=== PATIENT | female | born 1980 | race Two or more races ===

== ENCOUNTER 2024-08-25 20:24 | Emergency (ER) | payer BC, SELFPAY ==
[2024-08-25 20:25] VITALS: BMI 31.8
[2024-08-25 21:00] VITALS: BP 138/90; PULSE 103; RESP 18; TEMP 37.1; O2SAT 96
--- NOTE | 2024-08-25 22:19 | EDNOTE_ITS ---
ED Ear RME/HPI General Chief complaint: Dental/Oral/Throat Stated complaint: THROAT PAIN, EAR PAIN Arrival date/time: 08/25/24 20:24 RME / HPI RME / HPI Narrative: Dr. Welsh's Main ED Evaluation: 43yo female with no significant past medical history presents to the ED for complaints of bilateral ear pain and sore throat. Patient states she started having a sore throat yesterday. She states she had a telehealth appointment with her PCP today and was told she had sinusitis, but was not prescribed antibiotics. Patient reports associated congestion and fever. She has been taking ibuprofen at home without any alleviation of symptoms. Patient denies any N/V or any other associated symptoms. No known allergies. Related Data Allergies Allergy/AdvReac Type Severity Reaction Status Date / Time No Known Allergies Allergy Unknown Uncoded 08/25/24 20:25 Review of Systems Review of Systems Systems Reviewed: All systems reviewed, normal except as documented Past Medical History Social History SMOKING STATUS: Never smoker ED Exam Narrative Physical exam: GENERAL APPEARANCE: alert and oriented x 4, well-developed, well-nourished, no acute distress VITALS: All vitals were reviewed and the pulse ox is 96% on room air, which is normal according to my interpretation. HEENT: Normocephalic, atraumatic; pupils equal, round, reactive to light; EOMI; mucous membranes pink, moist; posterior oropharyngeal injection; right serous otitis media NECK: Supple LUNGS: CTABL; no wheezes, no rales, no rhonchi HEART: Regular rate, regular rhythm; normal S1, S2; no murmurs ABDOMEN: non distended; normal BS; soft, no tenderness, no guarding, no rebound; no masses, no organomegaly, no hernia BACK: no CVA tenderness EXTREMITIES: atraumatic; no edema NEUROLOGIC: awake; alert and oriented x4; cranial nerves II-XII grossly intact; no focal sensory or motor deficits PSYCHIATRIC: appropriate mood and affect SKIN: warm, dry, normal color; no rashes Course Quality Measures none Orders Category Date Time Status Dexamethasone Inj [Decadron Inj] Med 08/25/24 22:25 Once 10 mg PO X1 ONE Oxymetazoline Yogesh Gillespie 0.05% [Afrin Nasal [place]] Med 08/25/24 22:24 Once See Dose Instructions NASAL X1 ONE Vital Signs Vital signs: Vital Signs Temperature 98.8 F 08/25/24 21:00 Pulse Rate 103 H 08/25/24 21:00 Respiratory Rate 18 08/25/24 21:00 Blood Pressure 138/90 H 08/25/24 21:00 Pulse Oximetry (%) 96 08/25/24 21:00 Oxygen Delivery Method Room Air 08/25/24 21:00 Ear MDM Narrative MDM Narrative:: Scribe Attestation: 08/25/24 Otilia Quinonez am scribing for and in the presence of Dr. Welsh. Patient data External records reviewed:: [facility] previous records (Per chart review, patient has no previous ED visits or admissions to this facility.) Clinical information provided by:: patient Social determinants that could affect healthcare access:: none Patient has the following chronic illnesses:: none How is presenting disease/condition affected by chronic disease/condition?: no chronic disease Evaluation data The following diagnostics were reviewed and interpreted by me:: other (specify) (none) Lab and/or radiology exams considered but not ordered:: none Interpretation Summary: none Medications / Prescriptions Medications or Prescriptions considered but not ordered:: none Medication administrations:: Medication Administration History Dexamethasone Sodium Phosphate (Dexamethasone Sod Phos Inj 10 Mg/Ml Vial) 10 mg PO X1 ONE Stop: 08/25/24 22:26 Oxymetazoline HCl (Oxymetazoline Yogesh Gillespie 0.05% 15 Ml Btl) 0 spray NASAL X1 ONE Stop: 08/25/24 22:25 see above, if any Consultations Consultation(s) initiated? (list below): No Diagnosis Ear Differential Diagnosis: otitis externa, otitis media and other (Strep, viral syndrome) Most likely diagnosis given after review of the tests above:: see clinical impression below Admission Indicated Admission indicated?: not indicated Admission Request Was there a request for admission?: No Disposition Plan Disposition Plan: Discharge Discharge Attestation Discharge Attestation: The patient and all family members were given an opportunity to ask questions and understood the discharge instructions. Discharge instructions specifically effects, indications for sooner follow up or return to the emergency department, and the expected course of current diagnosis. Patient condition: Stable Discharge Plan Plan Patient Disposition: HOME (Self Care) Discharge Disposition comment: stable for discharge home Patient condition on transfer: Stable Prescriptions/Referrals Referrals: [facility] [Provider Group] - In 1 week Problem List Clinical Impression: Pharyngitis, Acute serous otitis media Patient/Caregiver Discharge Instructions Discharge Activity: activity as tolerated Education Materials: Common Middle Ear Problems, Anatomy of the Ear, ED Pharyngitis, Report Pending Additional Instructions: Please return to the er for any worsening or any further medical problems Print Language: Malay Stand Alone Forms: Martha Award Info., Patient Portal Info Letter
[2024-08-25] MEDS: DEXAMETHASONE SOD PHOS INJ 10 MG/ML VIAL PO (22:48)
[2024-08-25] MEDS: OXYMETAZOLINE NAS SPRY 0.05% 15 ML BTL NASAL (22:49)
== END 2024-08-25 22:51 | disposition home or self-care (01) ==
PROVIDERS: Emergency Provider Emergency Medicine
DX: H65.03 Acute serous otitis media, bilateral (principal); J02.9 Acute pharyngitis, unspecified
CPT/HCPCS: 99282; J1100; A9270